=== PATIENT | female | born 1970 | race Hispanic/Latino ===

== ENCOUNTER 2017-11-27 14:20 | Outpatient (CLI) | payer BC ==
--- NOTE | 2017-11-27 22:59 | XRay Report ---
FINAL REPORT EXAM: XR SPINE CERVICAL 6+V HISTORY: NECK PAIN COMPARISONS: None. FINDINGS: Eight views of the cervical spine Diffuse demineralization and extensive endplate remodeling throughout the cervical spine. Individual upper cervical vertebral bodies are difficult to discern on both lateral and AP views. Patient is status post anterior fusion in the C4-C5 region. 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 There straightening of the cervical spine. No listhesis demonstrated on lateral flexion and extension views. Prevertebral soft tissues are within normal limits. No acute fractures are detected. Incomplete evaluation of the lung apices is unremarkable. IMPRESSION: Extensive upper cervical degenerative finding status post anterior fusion C4-C5. No malalignment or acute fractures are identified. Sensitivity of fracture detection is decreased by demineralization and degenerative findings. Consider additional imaging for worsening/persistent symptoms.
== END 2017-11-27 14:21 | disposition home or self-care (01) ==
LOC: SPVIMAG 14:20
PROVIDERS: ATTEND Physical Medicine & Rehabilitation
DX: M43.22 Fusion of spine, cervical region (principal)
CPT/HCPCS: 72052